=== PATIENT | female | born 1960 | race African-American/Black ===

== ENCOUNTER 2019-12-29 11:34 | Emergency (ER) | payer BC, SELFPAY ==
[2019-12-29 11:56] VITALS: BP 142/89; PULSE 68; RESP 16; TEMP 36.6; O2SAT 100
--- NOTE | 2019-12-29 12:30 | ED.GENADULT ---
HPI - General Adult General Chief complaint: Unspecified Stated complaint: other Time Seen by Provider: 12/29/19 12:30 Source: patient and RN notes reviewed Mode of arrival: ambulatory Limitations: no limitations History of Present Illness HPI narrative: This is a 59 years old female presented office for a medication refill. She ran out of her lisinopril and she has an appointment with a new doctor on 01/06. She was told to come here to get a refill. Denies any acute symptoms such as fever, cough, congestion or headache. She reports right arm pain for about 2 years ever since she fell down. She had xray with negative finding; however she has had intermittent pain since injury. She described pain of the spasm to pulling on her right upper arm. She is right-hand dominant. Related Data Home Medications Medication Instructions Recorded Confirmed atorvastatin [Lipitor] 20 mg PO DAILY 12/29/19 12/29/19 lisinopril [Zestril] 10 mg PO DAILY 12/29/19 12/29/19 metformin [Glucophage] 500 mg PO DAILY 12/29/19 12/29/19 Allergies Allergy/AdvReac Type Severity Reaction Status Date / Time ibuprofen AdvReac Unknown Ulcers Verified 12/29/19 12:01 Review of Systems Review of Systems: Narrative: CONSTITUTIONAL: Denies fever, chills EYES: Denies visual changes ENT: Denies congestion CARDIOVASCULAR: Denies chest pain, palpitation RESPIRATORY: Denies cough GASTROINTESTINAL: Denies abdominal pain, nausea, vomiting, diarrhea. GENITOURINARY: Denies urinary symptoms SKIN: Denies rash MUSCULOSKELETAL:Reports right upper arm pain at times; but not currently NEUROLOGIC: Denies lightheaded/numbness PMFSH Past Medical History Medical History (Updated 12/29/19 @ 13:53 by TRAVIS Ulloa) Diabetes mellitus, type II HLD (hyperlipidemia) Hypertension Social History Social History Smoking status: Current some day smoker Gender identity (if verbalized by the patient): Female Comments At time of signature, I agree with nursing past medical, surgical, social and family history. There is no relevant family history pertinent to the presenting complaint. Exam Narrative: Exam Narrative: GENERAL: This is a well-nourished, well-developed patient, in no apparent distress. CARDIOVASCULAR: Regular rate and rhythm without murmurs, gallops, or rubs. RESPIRATORY: Clear to auscultation. Breath sounds equal bilaterally. No wheezes, rales, or rhonchi. GASTROINTESTINAL: Abdomen soft, non-tender, nondistended. Bowel sounds are active. No hepato-splenomegaly, or palpable masses. No guarding. SKIN: warm, intact with no suspicious lesions or rash, good texture and turgor. NEURO: awake, alert, and oriented to person, place and time. There were no obvious focal neurologic abnormalities. Steady gait EXTREMITIES: Normal range of motion. No edema. [place] Coma Scale Eye Opening: Spontaneous 4 [place] Coma Scale Motor: Obeys Commands 6 [place] Coma Scale Verbal: Oriented 5 Course Vital Signs Vital signs: Vital Signs Temperature 97.9 F 12/29/19 11:56 Pulse Rate 68 12/29/19 11:56 Respiratory Rate 16 12/29/19 11:56 Blood Pressure 142/89 H 12/29/19 11:56 Pulse Oximetry 100 12/29/19 11:56 Temperature 97.9 F 12/29/19 11:56 Pulse Rate 68 12/29/19 11:56 Respiratory Rate 16 12/29/19 11:56 Blood Pressure 142/89 H 12/29/19 11:56 Pulse Oximetry 100 12/29/19 11:56 Medical Decision Making Vital Signs Vital Signs: Vital Signs Temperature 97.9 F 12/29/19 11:56 Pulse Rate 68 12/29/19 11:56 Respiratory Rate 16 12/29/19 11:56 Blood Pressure 142/89 H 12/29/19 11:56 Pulse Oximetry 100 12/29/19 11:56 Temperature 97.9 F 12/29/19 11:56 Pulse Rate 68 12/29/19 11:56 Respiratory Rate 16 12/29/19 11:56 Blood Pressure 142/89 H 12/29/19 11:56 Pulse Oximetry 100 12/29/19 11:56 Critical Care Time Critical Care Time Critical Care Time:
== END 2019-12-29 12:41 | disposition home or self-care (01) ==
PROVIDERS: Emergency Provider Nurse Practitioner
DX: I10 Essential (primary) hypertension (principal); E11.9 Type 2 diabetes mellitus without complications; E78.5 Hyperlipidemia, unspecified; F17.200 Nicotine dependence, unspecified, uncomplicated; Z79.84 Long term (current) use of oral hypoglycemic drugs
CPT/HCPCS: 99211; G0463

== ENCOUNTER 2021-05-21 14:47 | Emergency (ER) | payer BC, SELFPAY ==
--- NOTE | ~2021-05-21 | XR_ITS ---
EXAMINATION: XR hip LT min 2V EXAM DATE: 05/21/2021 16:29 INDICATION: Left hip pain and limited range of motion. Injury 3 years ago. TECHNIQUE: Left hip frontal, 'frog leg' projections for interpretation. Comparison is made to prior e xamination from 01/06/2014. FINDINGS: Smooth left hip femoral head contour, no radiographic evidence of avascular necrosis. Ther e is moderate primary osteoarthritis with interval progression compared to prior study. There are no acute fractures or dislocations identified. There is no subcutaneous gas. The soft tissue is unrema rkable. There are no radiopaque foreign bodies. IMPRESSION: Moderate left hip osteoarthritis. Reviewed, dictated and finalized at location A.
--- NOTE | ~2021-05-21 | XR_ITS ---
XR chest 1V portable DATE: 05/21/2021 18:29 INDICATION: Hyperglycemia. Diabetes mellitus. Hypertension. TECHNIQUE: Portable upright AP chest on 05/21/2021 at 1823 hours COMPARISON: 06/19/2019 PA and lateral chest FINDINGS: Normal heart size. Mild aortic unfolding. No hilar or mediastinal enlargement. No pulmonary infiltrate or consolidation, pleural effusion or pulmonary vascular congestion or pneumothorax. Degenerative spurring of the thoracic spine. IMPRESSION: No active cardiopulmonary disease Reviewed, dictated and finalized at location A.
[2021-05-21 14:51] VITALS: BP 150/92; PULSE 100; RESP 18; TEMP 36.1; O2SAT 100
--- NOTE | 2021-05-21 15:36 | ED.GENADULT ---
HPI - General Adult General Chief complaint: Extremity Injury, Upper <Anne Terrell PA-C - Last Filed: 05/21/21 20:05> Stated complaint: Multiple Complaints <ALEJANDRINA Champion Last Filed: 05/21/21 20:05> Time Seen by Provider: 05/21/21 15:35 <ALEJANDRINA Champoin Last Filed: 05/21/21 20:05> Source: patient <ALEJANDRINA Champion Last Filed: 05/21/21 20:05> Mode of arrival: ambulatory <ALEJANDRINA Champion Last Filed: 05/21/21 20:05> Limitations: no limitations <ALEJANDRINA Champion Last Filed: 05/21/21 20:05> History of Present Illness HPI narrative: Patient is here for multiple medical complaints some dating back to 2017. Primary complaint is pain in her left shoulder after receiving her Covid vaccine in November 2020. States that she had quite a bit of swelling at the time and continues to have significant pain. She also has a rash on her back that is quite itchy, and it has been there for several years. And she is also complaining of some urinary symptoms and vulvodynia. And left hip pain and possibly a left breast lump. <Anne Terrell PA-C - Last Filed: 05/21/21 20:05> Onset (ago): year(s) <ALEJANDRINA Champion Last Filed: 05/21/21 20:05> Related Data Home medications: Home Medications Medication Instructions Recorded Confirmed atorvastatin [Lipitor] 20 mg PO DAILY 12/29/19 12/29/19 metformin [Glucophage] 500 mg PO DAILY 12/29/19 12/29/19 <ALEJANDRINA Champion Last Filed: 05/21/21 20:05> Allergies/adverse reactions: Allergies Allergy/AdvReac Type Severity Reaction Status Date / Time ibuprofen AdvReac Unknown Ulcers Verified 05/21/21 15:39 <ALEJANDRINA Champion Last Filed: 05/21/21 20:05> Review of Systems Constitutional: Constitutional: Reports no additional constitutional complaints <Anne Terrell PA-C - Last Filed: 05/21/21 20:05> Eyes: Comments: cyst in left eye lid. <Anne Terrell PA-C - Last Filed: 05/21/21 20:05> ENT: Reports system reviewed and no additional complaints, except as documented <Anne Terrell PA-C - Last Filed: 05/21/21 20:05> Cardiovascular: Cardiovascular: Reports no additional cardiovascular complaints <Anne Terrell PA-C - Last Filed: 05/21/21 20:05> Respiratory: Respiratory: Reports no additional respiratory complaints <Anne Terrell PA-C - Last Filed: 05/21/21 20:05> Gastrointestinal: Gastrointestinal: Reports no additional gastrointestinal complaints <Anne Terrell PA-C - Last Filed: 05/21/21 20:05> Genitourinary: Genitourinary: Reports genital lesions <Anne Terrell PA-C - Last Filed: 05/21/21 20:05> Musculoskeletal: Musculoskeletal: Reports no additional musculoskeletal complaints <Anne Terrell PA-C - Last Filed: 05/21/21 20:05> Integumentary/Breasts: Skin/Breast: Reports system reviewed and no additional complaints, except as docu <Anne Terrell PA-C - Last Filed: 05/21/21 20:05> Neurologic: Reports system reviewed and no additional complaints, except as documented <Anne Terrell PA-C - Last Filed: 05/21/21 20:05> [facility] Past Medical History Medical History: Medical History Diabetes mellitus, type II HLD (hyperlipidemia) Hypertension <Anne Terrell PA-C - Last Filed: 05/21/21 20:05> Social History Social History: Social History Smoking status: Current some day smoker Gender identity (if verbalized by the patient): Female <Anne Terrell PA-C - Last Filed: 05/21/21 20:05> Exam Const: General: no acute distress and alert <ALEJANDRINA Champion Last Filed: 05/21/21 20:05> Orientation/consciousness: patient oriented x3 <Anne Terrell PA-C - Last Filed: 05/21/21 20:05> HENMT: Head: normal to inspection <ALEJANDRINA Champion Last Filed: 05/21/21 20:05> Mouth: Yes Normal oral and palatal mucos
[2021-05-21 16:26] LABS: Add Urine Microscopic? YES; Appearance Urine Clear (Clear); Bilirubin Urine Negative (Negative); Blood Urine Negative (Negative); Color Urine Straw (Yellow); Glucose Urine UA 3+ mg/dL (Negative); Ketones Urine Negative (Negative); Leukocyte Esterase Ur Negative LEU/UL (Negative); Nitrate Urine Negative (Negative); Protein Urine Negative (Negative); RBC Urine 0-2 /hpf (0-2); Specific Grav Ur 1.024 (1.001-1.035); Squamous Epithelial Cell Urine Rare /hpf (Few); Urobilinogen Urine Negative mg/dL (<2.0); WBC Urine 0-3 /hpf
[2021-05-21] MEDS: GABAPENTIN 100 MG CAPSULE PO (16:30)
[2021-05-21 16:49] LABS: Glucose Point of Care > 500 mg/dl (65-105)
[2021-05-21] MEDS: SODIUM CHLORIDE 0.9% IV 1,000 ML 999 ML IV CONT ×2 (17:42→18:59)
[2021-05-21 17:50] LABS: Basophils Percent Auto 0.3 % (0.2-1.2); Eosinophils Absolute Auto 0.1 K/mm3 (0-0.3); Eosinophils Percent Auto 0.4 % (0-4.4); Hematocrit 43.8 % (37.0-47.0); Hemoglobin 14.7 g/dL (12.0-15.0); Immature Granulocyte Absolute 0.05 K/mm3 (0.00-0.031); Immature Granulocyte Percent A 0.4 % (0-0.5); Lymphocytes Absolute Auto 3.04 K/mm3 (0.9-3.2); Lymphocytes Percent Auto 23.8 % (18.3-44.2); Mean Corpuscular HGB Conc 33.6 g/dl (32-36); Mean Corpuscular Hemoglobin 30.8 pg (26-34); Mean Corpuscular Volume 91.8 fl (80-100); Mean Platelet Volume 10.9 fl (7.4-10.4); Monocytes Absolute Auto 0.7 K/mm3 (0.1-0.6); Monocytes Percent Auto 5.2 % (2.6-8.5); Neutrophils Absolute Auto 8.9 K/mm3 (1.3-6.7); Neutrophils Percent Auto 69.9 % (45.5-73.1); Platelet Count Result 333 k/mm3 (150-375); Red Blood Count 4.77 M/mm3 (4.2-5.4); Red Cell Distribution Width 13.3 % (11.5-14.5); White Blood Count 12.8 K/mm3 (4.5-10.0)
[2021-05-21 18:03] LABS: Anion Gap 10 mmol/L (8-16); Blood Urea Nitrogen 14 mg/dL (7-17); Calcium 10.1 mg/dL (8.4-10.2); Carbon Dioxide 28 mmol/L (22-30); Chloride 92 mmol/L (98-107); Estimated CRCL calculation 78 ml/min; Estimated Glomerular Filt Rate > 60; Glucose 469 mg/dL (65-110); Potassium 4.7 mmol/L (3.4-5.0); Sodium 130 mmol/L (137-145)
[2021-05-21 18:40] LABS: Glucose Point of Care 354 mg/dl (65-105)
[2021-05-21 20:06] LABS: Glucose Point of Care 298 mg/dl (65-105)
--- NOTE | 2021-05-31 08:10 | PC.NURSE ---
LATE ENTRY This note is being entered to document information to the patient's record. The following information was omitted on [05/21/21], by [naida sapp RN]. IV NS stopped @ 1947 on 05/21/21
== END 2021-05-21 20:12 | disposition home or self-care (01) ==
PROVIDERS: Physician Assistant; Emergency Provider Emergency Medicine
DX: E11.65 Type 2 diabetes mellitus with hyperglycemia (principal); R52 Pain, unspecified; E78.5 Hyperlipidemia, unspecified; Z72.0 Tobacco use
CPT/HCPCS: 36415; 71045; 73502; 80048; 81001; 82948; 85025; 96360; 96361; 99283; A9270; J7030

== ENCOUNTER 2021-08-21 12:14 | Emergency (ER) | payer BC, SELFPAY ==
[2021-08-21 12:26] VITALS: BP 118/75; PULSE 86; RESP 18; TEMP 36.4; O2SAT 100
--- NOTE | 2021-08-21 12:27 | ED.GENADULT ---
HPI - General Adult General Chief complaint: Extremity Problem,Nontraumatic Stated complaint: Toes are turning blue Time Seen by Provider: 08/21/21 12:27 Source: patient, RN notes reviewed and old records reviewed Mode of arrival: ambulatory Limitations: no limitations History of Present Illness HPI narrative: 61-year-old female presents to the [facility] with multiple complaints and wanting her feet checked, blood sugar checked because she could not get in with her primary care provider patient is requesting a referral to [employer] provider because of her eggs Related Data Home Medications Medication Instructions Recorded Confirmed atorvastatin [Lipitor] 20 mg PO DAILY 12/29/19 08/21/21 Allergies Allergy/AdvReac Type Severity Reaction Status Date / Time ibuprofen AdvReac Unknown Ulcers Verified 08/21/21 12:18 Review of Systems Review of Systems: All systems reviewed & are unremarkable except as noted in HPI and below Constitutional: Constitutional: Reports no additional constitutional complaints, Denies chills and Denies fever(s) Eyes: Eyes: Reports no additional eye complaints ENT: Reports system reviewed and no additional complaints, except as documented Cardiovascular: Cardiovascular: Reports no additional cardiovascular complaints and Denies chest pain Respiratory: Respiratory: Reports no additional respiratory complaints, Denies cough and Denies dyspnea Gastrointestinal: Gastrointestinal: Reports no additional gastrointestinal complaints, Denies abdominal pain, Denies nausea and Denies vomiting Musculoskeletal: Musculoskeletal: Reports no additional musculoskeletal complaints Comments: Feet pain bilateral, worse at night Integumentary/Breasts: Skin/Breast: Reports system reviewed and no additional complaints, except as docu Neurologic: Reports system reviewed and no additional complaints, except as documented Psychiatric: Psychiatric: Reports no additional psychiatric complaints Allergic/Immunologic: Allergic/Immunologic: Reports no additional allergic/immunologic complaints [facility] Past Medical History Medical History Diabetes mellitus, type II HLD (hyperlipidemia) Hypertension Social History Social History Smoking status: Current some day smoker Gender identity (if verbalized by the patient): Female Comments At the time of my signature, I reviewed and agree with the nursing past medical, surgical, social, and family history. There is no relevant family history pertinent to the patient complaint. Exam Const: General: healthy appearing, no acute distress and alert Nutritional Appearance: well nourished Orientation/consciousness: patient oriented x3 Limitations: no limitations HENMT: Head: normal to inspection Ears: external ears normal Eyes: Pupils: Equal, round and reactive pupils present Neck: Neck: normal visual inspection, no lymphadenopathy and no meningeal signs Chest: Chest palpation & inspection: normal inspection of the chest Resp: Effort & Inspection: normal respiratory effort and no use of accessory muscles Auscultation: clear to auscultation bilaterally, no crackles, no rales, no rhonchi and no wheezes Cardio: Rate: regular rate Rhythm: regular rhythm : General: Yes no CVA tenderness Back/Spine/Pelvis: Back: no CVA tenderness Skin: General skin exam: normal color Rashes: no rashes Wounds: no wounds Neuro: General: patient oriented x3, moves all extremities, no meningeal signs and no focal motor deficits Cranial nerves: Yes Equal, round and reactive pupils present Speech: normal speech Gait exam (Neuro): Normal gait present Extrem: General: normal to inspection and no pedal edema Other: Positive pedal pulse. Capillary refill under 2 seconds. Full range of motion. Sensation intact in all 10 toes Psych: Appearance: grossly normal and well kempt Mental Status: ment
[2021-08-21 12:44] LABS: Glucose Point of Care 155 mg/dl (65-105)
== END 2021-08-21 12:50 | disposition home or self-care (01) ==
PROVIDERS: Emergency Provider Nurse Practitioner
DX: E11.65 Type 2 diabetes mellitus with hyperglycemia (principal); M79.672 Pain in left foot; M79.671 Pain in right foot; F17.200 Nicotine dependence, unspecified, uncomplicated; E78.5 Hyperlipidemia, unspecified; I10 Essential (primary) hypertension
CPT/HCPCS: 82948; 99212; G0463

== ENCOUNTER 2021-09-07 12:52 | Outpatient (CLI) | payer BC, SELFPAY ==
--- NOTE | ~2021-09-07 | US_ITS ---
EXAMINATION: US pelvic complete w TV DATE: 09/07/2021 14:03 INDICATION: Pelvic and perineal pain TECHNIQUE: Multiple transabdominal and endovaginal sonographic images of the pelvis were obtained. COMPARISON: None. FINDINGS: The uterus measures 6.9 x 3.7 x 5.0 cm. Small calcified uterine fibroids are noted. The end ometrial complex measures 6 mm. The ovaries are not visualized however no adnexal abnormality is seen . There is mild prominence of the parametrial vessels. There is no free fluid in the pelvis. IMPRESSION: 1. Mild prominence of the parametrial vessels which can be seen in the setting of pelvic venous conge stion syndrome. Reviewed, dictated and finalized at location A. [facility] [employer] IMPRESSION: 1. Mild prominence of the parametrial vessels which can be seen in the setting of pelvic venous congestion syndrome.
== END 2021-09-07 12:53 | disposition home or self-care (01) ==
LOC: ANHIMG 12:55
PROVIDERS: Visit Provider Obstetrics & Gynecology
DX: R10.2 Pelvic and perineal pain (principal)
CPT/HCPCS: 76830; 76856

== ENCOUNTER 2021-12-18 09:48 | Emergency (ER) | payer BC, SELFPAY ==
--- NOTE | ~2021-12-18 | US_ITS ---
US breast RT limited DATE: 12/18/2021 10:55 INDICATION: Right breast pain TECHNIQUE: Real-time imaging targeted right breast pain from 12:00 to 2:00 COMPARISON: None FINDINGS: No suspicious mass, shadowing, cyst or other significant sonographic abnormalities identifi ed at 12:00 11 2:00. IMPRESSION: BI-RADS Category 1: Negative Reviewed, dictated and finalized at Location A. Reviewed, dictated and finalized at location A.
--- NOTE | ~2021-12-18 | XR_ITS ---
EXAMINATION: XR hip LT min 3V w AP pelvis DATE: 12/18/2021 10:31 INDICATION: Left hip pain post fall TECHNIQUE: Anteroposterior view of the pelvis and anteroposterior, frog leg and cross-table lateral v iews of the left hip were obtained. COMPARISON: 05/21/2021 FINDINGS: Bone alignment is normal. No fracture. Unchanged moderate osteoarthritis of the left hip with subarti cular cystic change at the superior left acetabulum and prominent marginal osteophytes about both the femoral head and acetabular rim. Mild osteoarthritis of the right hip and bilateral sacralized joint s. Moderate osteitis pubis. Severe spondylosis of the lumbosacral junction. IMPRESSION: 1. Moderate left hip osteoarthritis. No acute osseous abnormality. Reviewed, dictated and finalized at location B.
[2021-12-18 10:17] VITALS: BP 174/107; PULSE 89; RESP 18; TEMP 36.3; O2SAT 100
[2021-12-18 10:19] VITALS: BP 155/99; PULSE 88; RESP 18; TEMP 36.4; O2SAT 98
[2021-12-18 11:10] VITALS: RESP 18; O2SAT 98
[2021-12-18] MEDS: HYDROCORTISONE 1% 30 GM CREAM 1 APPLIC TOPICAL (11:13)
[2021-12-18 11:16] VITALS: BP 142/88; PULSE 72; RESP 18; O2SAT 100
--- NOTE | 2021-12-18 11:16 | ED.GENADULT ---
HPI - General Adult General Chief complaint: Unspecified Stated complaint: swollen neck, breast, hip Time Seen by Provider: 12/18/21 10:08 History of Present Illness HPI narrative: 61-year-old female presenting with chronic complaints including needing a mammogram and lung CT, she had a painful lump in her right breast and she also has pain in her left hip from falling about a month ago. She has been ambulating normally. Denies any fevers or chills. Related Data Home Medications Medication Instructions Recorded Confirmed atorvastatin 20 mg tablet (Lipitor) 20 mg PO DAILY 12/29/19 11/21/21 aspirin 81 mg capsule 81 mg PO DAILY 09/04/21 11/21/21 gabapentin 100 mg capsule 100 mg PO TID PRN 09/04/21 11/21/21 lisinopril 20 1 tablet PO DAILY 09/04/21 11/21/21 mg-hydrochlorothiazide 12.5 mg tablet multivitamin 1 tablet PO DAILY 09/04/21 11/21/21 Allergies Allergy/AdvReac Type Severity Reaction Status Date / Time No Known Allergies Allergy Verified 09/04/21 10:25 Pfizer COVID vaccine AdvReac Severe hyperglycemic Uncoded 11/20/21 11:39 crisis, blindness Review of Systems Review of Systems: CONST: No fever. HEENT: No sore throat C/V: No chest pain RESP: No cough GI: No abdominal pain : No dysuria. M/S: Left hip pain SKIN: Itchy rash on back NEURO: [No headache or focal numbness or weakness] PSYCH: [No depression] PMFSH Past Medical History Medical History Diabetes mellitus, type II HLD (hyperlipidemia) Hypertension Vaginal delivery x6 Surgical History Surgical History History of bilateral tubal ligation History of hernia repair 1974 Family History Family History Father Hypertension Mother Hypertension Diabetes mellitus Social History Social History Tobacco type: cigarettes Alcohol intake: current Alcohol use details: on holidays Substance use: current Substance use type: marijuana Gender identity (if verbalized by the patient): Female Agree to blood products: Yes Exam Narrative: EXAMINATION OF ORGAN SYSTEMS/BODY AREAS: Constitutional: Vital signs per nursing GENERAL:[No acute distress, non-toxic appearing.] HEAD: Normal with no signs of head trauma. EYES: EOMI, conjunctiva normal ENT: Hearing grossly intact LUNGS: Nonlabored breathing. HEART: [Regular rate and rhythm] ABD: [Soft], [nontender to palpation] EXT: Normal range of motion, tenderness over the left SKIN: Papular rash in the middle of the back; small slightly tender area in the right breast NEURO: [Alert and oriented x 3. No gross focal sensory or strength deficits.] PSYCH: Normal affect Course Vital Signs Vital signs: Vital Signs Temperature 97.4 F L 12/18/21 10:17 Pulse Rate 89 12/18/21 10:17 Respiratory Rate 18 12/18/21 10:17 Blood Pressure 174/107 H 12/18/21 10:17 Pulse Oximetry 100 12/18/21 10:17 Oxygen Delivery Room Air 12/18/21 10:17 Temperature 97.6 F 12/18/21 10:19 Pulse Rate 72 12/18/21 11:16 Respiratory Rate 18 12/18/21 11:16 Blood Pressure 142/88 H 12/18/21 11:16 Pulse Oximetry 100 12/18/21 11:16 Oxygen Delivery Room Air 12/18/21 10:19 Medical Decision Making [facility] Narrative Medical decision making narrative: 61-year-old female presenting with right breast pain and left hip pain, I did explain to the patient and unable to get obtain a mammogram here or a lung CT for lung cancer surveillance, I did obtain a breast ultrasound which to rule out infection, hip x-rays negative for fracture. Patient is reassured on this and once again reminded that she needs to follow-up with her primary care doctor to get the actual studies she needs, and that we cannot rule out malignancies based on the studies we did today. Vital Signs Vital Signs: Vi
== END 2021-12-18 11:25 | disposition home or self-care (01) ==
PROVIDERS: Emergency Provider Emergency Medicine; PCP Physician Assistant
DX: M25.552 Pain in left hip (principal); R21 Rash and other nonspecific skin eruption; N64.4 Mastodynia; E11.9 Type 2 diabetes mellitus without complications; E78.5 Hyperlipidemia, unspecified; I10 Essential (primary) hypertension; F17.200 Nicotine dependence, unspecified, uncomplicated
CPT/HCPCS: 73502; 76642; 99284; A9270

== ENCOUNTER 2022-04-27 14:51 | Emergency (ER) | payer BC, SELFPAY ==
--- NOTE | ~2022-04-27 | XR_ITS ---
EXAM: [id number]_[id number]_CR DATE: 04/27/2022 15:58 HISTORY: right sided neck pain radiating down the arm . COMPARISON: None available. FINDINGS: Craniocervical association and atlantoaxial joint are aligned. No prevertebral soft tissue swelling. Reversal of the normal cervical lordosis, centered at C5. Mild grade 1 retrolisthesis at C 5-6, mild anterolisthesis at C4-5 and C7-T1, unchanged. Moderate degenerative disc disease at C5-6. M ild degenerative disc disease at multiple levels. Multilevel mild-moderate facet arthropathy. IMPRESSION: No acute fracture or traumatic malalignment detected in the cervical spine. Degenerative changes, detailed above. Reviewed, dictated and finalized at location K. IMPRESSION: No acute fracture or traumatic malalignment detected in the cervica l spine. Degenerative changes, detailed above.
[2022-04-27 14:58] VITALS: BP 142/77; PULSE 91; RESP 14; TEMP 36.3; O2SAT 100
--- NOTE | 2022-04-27 15:20 | ED.GENADULT ---
HPI - General Adult General Chief complaint: Unspecified Stated complaint: left eye swelling, r side neck swelling Time Seen by Provider: 04/27/22 15:11 Source: patient Mode of arrival: ambulatory Limitations: no limitations History of Present Illness HPI narrative: This is a 61-year-old female that presents to the emergency department with multiple complaints. Reports she has had discomfort and drainage from the left eye today. Also reports she has had right-sided neck pain that radiates down her right arm. This has been ongoing for some time. No recent injury or trauma. Denies fever, vision changes, numbness, or weakness. Related Data Home Medications Medication Instructions Recorded Confirmed atorvastatin 20 mg tablet (Lipitor) 20 mg PO DAILY 12/29/19 11/21/21 aspirin 81 mg capsule 81 mg PO DAILY 09/04/21 11/21/21 gabapentin 100 mg capsule 100 mg PO TID PRN 09/04/21 11/21/21 lisinopril 20 1 tablet PO DAILY 09/04/21 11/21/21 mg-hydrochlorothiazide 12.5 mg tablet multivitamin 1 tablet PO DAILY 09/04/21 11/21/21 Allergies Allergy/AdvReac Type Severity Reaction Status Date / Time No Known Allergies Allergy Verified 09/04/21 10:25 Pfizer COVID vaccine AdvReac Severe hyperglycemic Uncoded 11/20/21 11:39 crisis, blindness Review of Systems Review of Systems: CONSTITUTIONAL: Denies fever EYES: Denies visual changes MUSCULOSKELETAL: Reports joint pain, and myalgia. NEUROLOGIC: Denies numbness, or weakness. All systems reviewed & are unremarkable except as noted in HPI and below PMFSH Past Medical History Medical History Diabetes mellitus, type II HLD (hyperlipidemia) Hypertension Vaginal delivery x6 Surgical History Surgical History History of bilateral tubal ligation History of hernia repair 1974 Family History Family History Father Hypertension Mother Hypertension Diabetes mellitus Social History Social History Tobacco type: cigarettes Alcohol intake: current Alcohol use details: on holidays Substance use: current Substance use type: marijuana Gender identity (if verbalized by the patient): Female Agree to blood products: Yes Exam Narrative: GENERAL: Well-appearing, well-nourished, and in no acute distress. HEAD: Normocephalic, atraumatic. EYES: PERRLA and EOMI. Mild conjunctival injection on the left. No erythema or edema of the eyelids ENT: Nares clear, no rhinorrhea or epistaxis. Mucous membranes moist. Oropharynx without tonsillar hypertrophy exudate or other lesions. Bilateral TMs pearly duque non-bulging NECK: Supple. No adenopathy or masses. CHEST: Clear to auscultation. No respiratory distress. No wheezes rales or rhonchi HEART: Regular rate and rhythm. No murmur heard. Normal peripheral pulses. EXTREMITIES: Normal range of motion. No edema. Strength equal in bilateral upper extremities (5/5) SKIN: Warm, dry, no rash. NEURO: No focal deficits. Alert and oriented x3. PSYCH: Normal mood and affect Course Vital Signs Vital signs: Vital Signs Temperature 97.4 F L 04/27/22 14:58 Pulse Rate 91 04/27/22 14:58 Respiratory Rate 14 04/27/22 14:58 Blood Pressure 142/77 H 04/27/22 14:58 Pulse Oximetry 100 04/27/22 14:58 Temperature 97.4 F L 04/27/22 14:58 Pulse Rate 91 04/27/22 14:58 Respiratory Rate 14 04/27/22 14:58 Blood Pressure 142/77 H 04/27/22 14:58 Pulse Oximetry 100 04/27/22 14:58 Medical Decision Making [facility] Narrative Medical decision making narrative: Patient presents emergency department for left eye irritation and drainage. Also reporting neck pain radiating down her right arm. No recent injury or trauma. Patient is neurovascularly intact. Patient will be started on erythromycin ointment for conjunct
[2022-04-27] MEDS: ERYTHROMYCIN OPHTH OINTMENT 1 GM TUBE 1 APPLIC LEFT EYE (16:44)
== END 2022-04-27 17:01 | disposition home or self-care (01) ==
PROVIDERS: Emergency Provider Emergency Medicine; PCP Family Medicine
DX: H10.32 Unspecified acute conjunctivitis, left eye (principal); M54.2 Cervicalgia; E11.9 Type 2 diabetes mellitus without complications; E78.5 Hyperlipidemia, unspecified; I10 Essential (primary) hypertension; Z79.82 Long term (current) use of aspirin; Z79.84 Long term (current) use of oral hypoglycemic drugs
CPT/HCPCS: 72040; 99283; A9270

== ENCOUNTER 2022-11-19 08:51 | Emergency (ER) | payer BC, SELFPAY ==
[2022-11-19] VITALS (11 sets, daily range): BP systolic 101–123; BP diastolic 67–88; PULSE 85–108; RESP 15–31; TEMP 37; O2SAT 98–100
--- NOTE | ~2022-11-19 | XR_ITS ---
AP view of the pelvis and AP and lateral views of the left hip Clinical history: Pain Findings: No acute fracture or dislocation is seen. There is moderate to advanced left hip joint dege nerative change, with mild joint space narrowing and osteophyte formation. There is minimal right hip joint degenerative change.. Soft tissues are unremarkable. 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 Mild right hip joint osteoarthritis. Reviewed, dictated and finalized at location M. 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 Mild right hip joint osteoarthritis.
--- NOTE | ~2022-11-19 | XR_ITS ---
Right ankle Technique: AP, oblique, and lateral views were obtained. Clinical History: Pain Findings: No acute fracture or dislocation is seen. Osseous alignment is anatomic. Ankle mortise and other visualized joint spaces are preserved. Small plantar calcaneal spur present. There is enthesopa thic change at the Achilles tendon insertion. Soft tissues are otherwise unremarkable. Impression: No fracture or dislocation. Reviewed, dictated and finalized at location . Impression: No fracture or dislocation.
--- NOTE | 2022-11-19 11:05 | PC.NURSE ---
Pt ambulates into ER c/o not having any medication. States she has a hx of diabetes and takes metformin, but only has one tablet left. Pt also c/o right ankle pain from a fall on 's day. States she did not come to the ER due to not having an ID. States there was swelling to the area, but has been using an ankle brace. States her leg gave out on her and she fell. States it takes a few minutes to get out of bed due to pain in her bilateral hips from a fall a few years prior. PMS is present in her lower extremities.
--- NOTE | 2022-11-19 16:47 | ED.RECABL ---
HPI - Recheck/Abnormal Lab/Rx General Chief Complaint: Recheck/Abnormal Lab/Rx Stated Complaint: blood sugar, Right foot Time Seen by Provider: 11/19/22 11:20 History of Present Illness HPI narrative: Patient presenting with right ankle pain and left hip pain, she generally has pain in all her joints ongoing for months, but has not been able to see her doctor because she has no insurance. She also needs refills on all of her medications. Related Data Home Medications Medication Instructions Recorded Confirmed atorvastatin 20 mg tablet (Lipitor) 20 mg PO DAILY 12/29/19 11/21/21 aspirin 81 mg capsule 81 mg PO DAILY 09/04/21 11/21/21 gabapentin 100 mg capsule 100 mg PO TID PRN 09/04/21 11/21/21 lisinopril 20 1 tablet PO DAILY 09/04/21 11/21/21 mg-hydrochlorothiazide 12.5 mg tablet multivitamin 1 tablet PO DAILY 09/04/21 11/21/21 Allergies Allergy/AdvReac Type Severity Reaction Status Date / Time No Known Allergies Allergy Verified 09/04/21 10:25 Pfizer COVID vaccine AdvReac Severe hyperglycemic Uncoded 11/20/21 11:39 crisis, blindness Review of Systems Review of Systems: CONST: No fever. HEENT: No sore throat C/V: No chest pain RESP: No cough GI: No abdominal pain : No dysuria. M/S: Multiple joint pain SKIN: Itchy rash to back NEURO: [No headache or focal numbness or weakness] PSYCH: [No depression] PMFSH Past Medical History Medical History Diabetes mellitus, type II HLD (hyperlipidemia) Hypertension Vaginal delivery x6 Surgical History Surgical History History of bilateral tubal ligation History of hernia repair 1974 Family History Family History Father Hypertension Mother Hypertension Diabetes mellitus Social History Social History Tobacco type: cigarettes Alcohol intake: current Alcohol use details: on holidays Substance use: current Substance use type: marijuana Living arrangements: alone Gender identity (if verbalized by the patient): Female Agree to blood products: Yes Exam Narrative: EXAMINATION OF ORGAN SYSTEMS/BODY AREAS: Constitutional: Vital signs per nursing GENERAL:[No acute distress, non-toxic appearing.] HEAD: Normal with no signs of head trauma. EYES: EOMI, conjunctiva normal ENT: Hearing grossly intact LUNGS: Nonlabored breathing. HEART: [Regular rate and rhythm] ABD: [Soft], [nontender to palpation] EXT: Normal range of motion, some very mild tenderness palpation to the right ankle, ambulating normally SKIN: Raised pruritic rash to lower back NEURO: [Alert and oriented x 3. No gross focal sensory or strength deficits.] PSYCH: Normal affect Course Vital Signs Vital signs: Vital Signs Temperature 98.6 F 11/19/22 09:04 Pulse Rate 108 H 11/19/22 09:04 Respiratory Rate 18 11/19/22 09:04 Blood Pressure 123/84 11/19/22 09:04 Pulse Oximetry 98 11/19/22 09:04 Oxygen Delivery Room Air 11/19/22 09:04 Temperature 98.6 F 11/19/22 09:04 Pulse Rate 85 11/19/22 12:45 Respiratory Rate 18 11/19/22 12:45 Blood Pressure 109/67 11/19/22 12:02 Pulse Oximetry 100 11/19/22 12:45 Oxygen Delivery Room Air 11/19/22 09:04 MDM - Recheck/Abnormal Lab/Rx MDM Narrative Medical decision making narrative: A 62-year-old female presenting here requesting medication refills because she is in between doctors, she is also complaining of chronic hip, knee, ankle pain going on for months to years, she did recently injure her right ankle. History obtained from patient and family member at bedside. I obtained x-rays here to rule out fractures, on my independent interpretation of the left hip and right ankle x-rays, I did not note any obvious fractures. Per radiology interpretation there is severe arthritis
== END 2022-11-19 12:55 | disposition home or self-care (01) ==
PROVIDERS: Emergency Provider Emergency Medicine; PCP Family Medicine
DX: S93.401A Sprain of unspecified ligament of right ankle, initial encounter (principal); M16.0 Bilateral primary osteoarthritis of hip; E11.9 Type 2 diabetes mellitus without complications; E78.5 Hyperlipidemia, unspecified; I10 Essential (primary) hypertension; F17.210 Nicotine dependence, cigarettes, uncomplicated; Z79.82 Long term (current) use of aspirin; Z79.84 Long term (current) use of oral hypoglycemic drugs; X58.XXXA Exposure to other specified factors, initial encounter
CPT/HCPCS: 73502; 73610; 99284

== ENCOUNTER 2024-01-27 11:48 | Emergency (ER) | payer MEDICARE, MEDICAID, SELFPAY ==
[2024-01-27 11:55] VITALS: BP 181/86; PULSE 108; RESP 20; TEMP 37; O2SAT 99
--- NOTE | 2024-01-27 13:26 | ED.EXTPRO ---
HPI - Extremity Problem General Chief complaint: Extremity Problem,Nontraumatic Stated complaint: toenail problem Time Seen by Provider: 01/27/24 12:41 History of Present Illness HPI Narrative: 63-year-old female presents to the emergency room for evaluation of ingrown toenail. Patient states that she has been applying a topical ingrown toenail ointment to the left great toe for several weeks, and slowly breaking off pieces of her toenail. Patient states that she has developed increased pain, swelling and redness to the toe over the last couple of days. Denies any discharge. D Related Data Home Medications Medication Instructions Recorded Confirmed atorvastatin 20 mg tablet (Lipitor) 20 mg PO DAILY 12/29/19 11/21/21 aspirin 81 mg capsule 81 mg PO DAILY 09/04/21 11/21/21 gabapentin 100 mg capsule 100 mg PO TID PRN 09/04/21 11/21/21 lisinopril 20 1 tablet PO DAILY 09/04/21 11/21/21 mg-hydrochlorothiazide 12.5 mg tablet multivitamin 1 tablet PO DAILY 09/04/21 11/21/21 Allergies Allergy/AdvReac Type Severity Reaction Status Date / Time No Known Allergies Allergy Verified 01/27/24 11:49 Pfizer COVID vaccine AdvReac Severe hyperglycemic Uncoded 11/20/21 11:39 crisis, blindness Review of Systems Review of Systems: ROS unremarkable except for noted in HPI PMFSH Past Medical History Medical History Diabetes mellitus, type II HLD (hyperlipidemia) Hypertension Vaginal delivery x6 Surgical History Surgical History History of bilateral tubal ligation History of hernia repair 1974 Family History Family History Father Hypertension Mother Hypertension Diabetes mellitus Social History Social History Tobacco type: cigarettes Alcohol intake: current Alcohol use details: on holidays Substance use: current Substance use type: marijuana Living arrangements: alone Gender identity (if verbalized by the patient): Female Agree to blood products: Yes Exam Narrative: GENERAL: Well-appearing, well-nourished, no physical limitations, and in no acute distress. HEAD: Normocephalic, atraumatic. EYES: Conjunctivae normal, PERRLA and EOMI. CHEST: Clear to auscultation. No respiratory distress. No wheezes rales or rhonchi. HEART: Regular rate and rhythm. No murmur heard. Normal peripheral pulses. EXTREMITIES: left toe: near complete avulsion of toenail. Discharged hematoma noted to the nail bed. Mild erythema and tenderness SKIN: rash noted to midthoracic back NEURO: No focal deficits. Alert and oriented x3. MAEW. CN's II-XI intact bilaterally, normal gait PSYCH: Cooperative. Normal mood and affect. Course Vital Signs Vital signs: Vital Signs Temperature 37.0 C 01/27/24 11:55 Pulse Rate 108 H 01/27/24 11:55 Respiratory Rate 01/27/24 11:55 Blood Pressure 181/86 H 01/27/24 11:55 Pulse Oximetry 99 01/27/24 11:55 Oxygen Delivery Room Air 01/27/24 11:55 Temperature 37.0 C 01/27/24 11:55 Pulse Rate 108 H 01/27/24 11:55 Respiratory Rate 01/27/24 11:55 Blood Pressure 181/86 H 01/27/24 11:55 Pulse Oximetry 99 01/27/24 11:55 Oxygen Delivery Room Air 01/27/24 11:55 Discharge Plan Discharge Clinical Impression: Ingrown toenail of left foot with infection, Dermatitis Patient Disposition: Home, Self-Care Condition: Stable Instructions: Antibiotic Form, Partial Nail Avulsion for Ingrown Nail (DC) Prescriptions: New triamcinolone acetonide 0.1 % cream 1 applic topical BID Qty: 15 0RF cephalexin 500 mg capsule 500 mg PO Q12H Qty: 14 0RF No Action atorvastatin [Lipitor] 20 mg Tablet 20 mg PO DAILY lisinopril-hydrochlorothiazide 20-12.5 mg tablet 1 tablet PO MARIANA
== END 2024-01-27 13:42 | disposition home or self-care (01) ==
PROVIDERS: Emergency Provider Nurse Practitioner Family
DX: L60.0 Ingrowing nail (principal); L30.9 Dermatitis, unspecified; I10 Essential (primary) hypertension; E11.9 Type 2 diabetes mellitus without complications; E78.5 Hyperlipidemia, unspecified; F17.210 Nicotine dependence, cigarettes, uncomplicated; Z79.899 Other long term (current) drug therapy; Z79.82 Long term (current) use of aspirin; Z79.84 Long term (current) use of oral hypoglycemic drugs
CPT/HCPCS: 99283